=== PATIENT | male | born 1960 | race Two or more races ===

== ENCOUNTER 2019-12-08 15:16 | Inpatient (IN) | payer OTHER ==
[~2019-12-08] VITALS: Ht 177.8 cm; Wt 87.1 kg
[2020-02-21] MEDS ORDERED: SYNTHROID112 MCG PO (13:09)
[2020-02-21] MEDS ORDERED: FENOFIBRATE160 MG PO (13:09)
[2020-02-21] MEDS ORDERED: ZOCOR20 MG PO (13:09)
[2020-02-21] MEDS ORDERED: RELAFEN PO (13:10)
[2020-02-29] MEDS ORDERED: NABUMETONE750 MG PO (08:49)
[2020-02-29] MEDS ORDERED: ULTRAM50 MG PO (08:49)
[2020-02-29] MEDS ORDERED: RESTORIL30 MG PO (08:49)
[2020-02-29] MEDS ORDERED: GABAPENTIN800 M1 PO (08:49)
[2020-02-29] MEDS ORDERED: PAXIL20 MG PO (08:51)
[2020-03-02] MEDS ORDERED: HYOSCYAMINE0.125 M1 SL (14:06)
[2020-03-02] MEDS ORDERED: OXYC1TAB9 PO (14:07)
[2020-03-02] MEDS ORDERED: INTESTINEX680 M1 PO (14:07)
== END 2020-03-02 14:38 | disposition home or self-care (01) | DRG 331 ==
LOC: SURG 01-24 13:45 → SURH 02-28 08:38 → O/R 02-28 08:38 → SURG 02-28 13:45 → SURH 02-28 19:25
PROVIDERS: ADMIT Surgery
PROC: 0DJD8ZZ Inspection of Lower Intestinal Tract, Via Natural or Artificial Opening Endoscopic (ICD-10-PCS; 2020-02-28)
PROC: 0DTN4ZZ Resection of Sigmoid Colon, Percutaneous Endoscopic Approach (ICD-10-PCS; principal; 2020-02-28 08:30)
DX: K57.32 Diverticulitis of large intestine without perforation or abscess without bleeding (principal); E03.8 Other specified hypothyroidism

== ENCOUNTER 2020-03-12 09:50 | Emergency (ER) | payer OTHER ==
[~2020-03-12] VITALS: Ht 177.8 cm; Wt 84.4 kg
[~2020-03-12 09:50] MED LIST: FENOFIBRATE160 MG PO; GABAPENTIN800 M1 PO; HYOSCYAMINE0.125 M1 SL; INTESTINEX680 M1 PO; NABUMETONE750 MG PO; OXYC1TAB9 PO; PAXIL20 MG PO; RELAFEN PO; RESTORIL30 MG PO; SYNTHROID112 MCG PO; ULTRAM50 MG PO; ZOCOR20 MG PO
== END 2020-03-12 11:00 | disposition home or self-care (01) ==
LOC: ER 09:50
DX: M54.5 Low back pain (principal)

== ENCOUNTER 2021-03-06 06:40 | Day surgery (SDC) | payer OTHER ==
[2021-03-06] MEDS ORDERED: RECTICARE30 GM TOP (11:09)
== END 2021-03-06 12:15 | disposition home or self-care (01) ==
LOC: AMB-ENDOS 06:40
PROVIDERS: ATTEND Surgery
DX: K62.89 Other specified diseases of anus and rectum (principal); K64.8 Other hemorrhoids; Z20.822 Contact with and (suspected) exposure to COVID-19

== ENCOUNTER 2022-12-24 08:51 | Emergency (ER) | payer OTHER ==
[~2022-12-24] VITALS: Ht 175.3 cm; Wt 88.9 kg
[~2022-12-24 08:51] MED LIST changes: +RECTICARE30 GM TOP
== END 2022-12-24 10:35 | disposition home or self-care (01) ==
LOC: ER 08:51
DX: K64.9 Unspecified hemorrhoids (principal)

== ENCOUNTER 2025-01-03 05:18 | Day surgery (SDC) | payer OTHER ==
[2025-01-03] MEDS ORDERED: BUPIVACAINE HCL/MPF 0.5% 30ML VIAL ONE (07:01)
[2025-01-03] MEDS ORDERED: POVIDONE-IODINE 118 ML BOTT TOP ONE (07:01)
[2025-01-03] MEDS ORDERED: HEMOSTATIC MATRIX 1 KIT KIT TOP ONE (07:01)
[2025-01-03] MEDS ORDERED: METRONIDAZOLE/SODIUM CHLORIDE 500 MG/100 ML PIGGYBACK IV ONE ×2 (07:01)
[2025-01-03] MEDS ORDERED: DIBUCAINE 30 GM TUBE ONE (07:01)
[2025-01-03] MEDS ORDERED: CEFTRIAXONE SODIUM 2,000 MG VIAL ONE (07:01)
[2025-01-03] MEDS ORDERED: LIDOCAINE HCL 1%/EPINEPHRINE 20ML VIAL IJ ONE (07:01)
[2025-01-03] MEDS ORDERED: PERCOCET 5-3251 EACH PO (08:17)
[2025-01-03] MEDS ORDERED: RECTICARE30 GM TOP (08:18)
[2025-01-03] MEDS ORDERED: MORPHINE SULFATE 4 MG/ML VIAL IV ONE (13:20)
[2025-01-03] MEDS ORDERED: TAMSULOSIN HCL 0.4 MG CAP PO ONE ×2 (14:45→14:46)
== END 2025-01-03 17:40 | disposition home or self-care (01) ==
LOC: CIR.AMB 05:18
PROVIDERS: ATTEND Surgery
DX: K64.2 Third degree hemorrhoids (principal); K64.4 Residual hemorrhoidal skin tags; E03.8 Other specified hypothyroidism; M19.90 Unspecified osteoarthritis, unspecified site; K76.0 Fatty (change of) liver, not elsewhere classified; Z88.6 Allergy status to analgesic agent